=== PATIENT | male | born 1955 | race Caucasian/White ===

== ENCOUNTER 2019-04-07 18:59 | Inpatient (IN) | payer BC ==
[2019-04-07] VITALS (13 sets, daily range): BP systolic 112–179; BP diastolic 53–107
--- NOTE | ~2019-04-07 | HEMODYNAMI ---
PATIENT:BRIT LOPEZ MEDICAL RECORD: [id number] : 55 LOCATION:[facility] ADMISSION DATE: 04/07/19 Generatedon:04/07/201921:29 Patient name: BRIT LOPEZ Patient #: [id number] SSN: D OB: 1955 Date of study: 04/07/2019 Page: Of Hemodynamic Procedure Report Patient Data Patient Demographics Procedure consent was obtained First Name: BRIT Gender: Male Last Name: JESSICA : 1955 Patient #: [id number] Age: 63 year(s) Race: Unknown Additional ID: [id number] Contact details Address: [address] [place] [address] State: [place] City: [place] Zip code: [address] Past Medical History Allergies: No known allergies Admission Admission Data Admission Date: 04/07/2019 Admission Time: 18:59 Height (in.): 72 BSA: 1.99 (m2) Height (cm.): 182.88 BMI: 23.06 (kg/m2) Weight (lbs.): 170 Weight (kg.): 77.11 Lab Results Lab Result Date: 04/07/2019 Lab Result Time: 0:00 Biochemistry Name Units Result Min Max BUN mg/dl 22 --(----)-* 7 18 Creatinine mg/dl 1 --(--*-)-- 0.6 1.3 CBC Name Units Result Min Max Hemoglobin g/dl 16.2 --(--*-)-- 13.5 17.5 Procedure Procedure Types Cath Procedure Diagnostic Procedure LHC LHC w/Coronaries Intra-Aortic Balloon Pump Sedation Charges Moderate Sedation up to 15 minutes PCI Procedure Coronary Stent Coronary Stent Initial Procedure Description Procedure Date Procedure Date: 04/07/2019 Procedure Start Time: 20:27 Procedure End Time: 21:08 Procedure Staff Name Function Oscar Nice MD Performing Physician Diane Huang RN Education And Development Manager Diane Huang RN Nurse Ambar Larson RT Scrwalter Tony RT Monitor Procedure Data Cath Procedure Fluoroscopy Diagnostic fluoroscopy Total fluoroscopy Time: 7.7 time: 7.7 min min Diagnostic fluoroscopy Total fluoroscopy dose: dose: 1081 mGy 1081 mGy Contrast Material Contrast Material Type Amount (ml) Isovue 300 154 Entry Location Entry Primary Successful Side Size Upsize Upsize Entry Closure Succes sful Closure Location (Fr) 1 (Fr) 2 (Fr) Remarks Device Remarks Femoral Right 6 Fr 7 Fr 8 Fr Sheath artery Short Short sutured in place Estimated blood loss: 10 ml Diagnostic catheters Device Type Used For End Catheter Placement MULTIPACK JL 4.0 5Fr Procedure catheter MULTIPACK 3DRC 5Fr Procedure catheter MULTIPACK Pigtail 5 Fr Procedure catheter Procedure Complications No complications Procedure Medications Medication Administration Route Dosage 0.9% NaCl I.V. 100 ml/hr Oxygen etCO2 Nasal cannula 2 l/min Lidocaine 2% added to field 20 Heparin Flush Bag added to field 2 bags (1000units/500ml NS) Versed I.V. 2 mg Fentanyl I.V. 50 mcg Benadryl I.V. 50 mg Heparin Bolus I.V. 3000 units Versed I.V. 2 mg Fentanyl I.V. 50 mcg Nitroglycerin IC/IA I.C. 100 mcg Heparin Drip I.V. drip 500 units/hr (58788nrpmn/250 D5W) Plavix P.O. 600 mg Hemodynamics Rest BSA: 1.99 (m2) O2 Consumption: Estimated: 252.52 (ml/min) O2 Consumption indexed : Estimated:126.89 (ml/min/m) Heart Rate: 97 (bpm) Pressure Samples Time Site Value (mmHg) Purpose Heart Use Rate(bpm) 20:48 LV 86/-2,13 Snapshot 97 20:50 AO 82/44(61) Pullback 91 20:50 LV 95/-5,18 Pullback 91 Gradients Valve Time Site 1 Site 2 Mean SEP/DFP Peak To Heart Use (mmHg) (sec/min) Peak Rate (mmHg) (bpm) Aortic 20:49 LV AO 92 Aortic 20:50 LV AO 9 22 13 91 95/-5,18 82/44(61) Calculations Valve P-P Mean Valve Index Valve Source Name Gradient Area Flow (cm2) Aortic 13 9 13 9 Snapshots Pre Cath Intra NCS Post Cath Vital Signs Time Heart Resp SPO2 etCO2 NIBP (mmHg) Rhythm Pain Sedation Rate (ipm) (%) (mmHg) Status Level (bpm) 20:19:00 80 10 98 33.5 105/71(85) NSR 0 (11) 10(A) , No pain 20:23:14 87 11 98 34.2 116/73(89) NSR 0 (11) 10(A) , No pain 20:27:30 77 15 97 32 124/81(101) NSR 0 (11) 10(A) , No pain 20:31:48 86 20 98 19.3 118/78(93) NSR 0 (11) 10(A) , No pain 20:36:06 84 19 98 14.1 109/72(83) NSR 0 (11) 9(A) , No pain 20:40:18 91 20 98 33.5 106/72(81) NSR 0 (11) 9(A) , No pain 20:44:32 86 25 97 25.3 107/65(79) NSR 0 (11) 9(A) , No pain 20:48:46 87 20 97 17.8 101/57(72) NSR 0 (11) 9(A) , No pain 20:52:58 91 20 97 25.3 106/68(86) NSR 0 (11) 9(A) , No pain 20:57:10 81 19 97 31.2 109/73(90) NSR 0 (11) 9(A) , No pain 21:01:22 82 20 98 30.5 106/77(91) NSR 0 (11) 9(A) , No pain 21:06:33 75 19 97 26.8 99/54(70) NSR 0 (11) 10(A) , No pain 21:18:03 76 16 98 28.3 109/76(88) NSR 0 (11) 10(A) , No pain Medications Time Medication Route Dose Verified Delivered Reason No alannah Effectiveness by by 20:27:37 Versed I.V. 2 mg Oscar Diane for sedation Tex Huang RN 20:27:53 Fentanyl I.V. 50 mcg Oscar Diane for sedation Tex Huang RN 20:30:21 0.9% NaCl I.V. 100 Oscar Diane used for ml/hr Nice MD Sal sales support engineer 20:30:27 Oxygen etCO2 2 l/min Oscar Diane used for Nasal Tex Huang procedure cannula RN 20:30:33 Lidocaine 2% added 20ml Oscar Oscar for local to vial Tex Nice MD anesthetic field 20:30:37 Heparin Flush added 2 bags Oscar Oscar used for Bag to Tex Nice MD procedure (1000units/500ml field NS) 20:31:00 Benadryl I.V. 50 mg Oscar Diane Per physician Be nadryl Tex anderson RN in ER pyxis, given upon arrival to 20:31:38 Heparin Bolus I.V. 3000 Oscar Diane for ve rified units Tex Huang anticoagulation with DrBriseida Nice 20:34:23 Versed I.V. 2 mg Oscar Diane for sedation Tex Huang RN 20:34:27 Fentanyl I.V. 50 mcg Oscar Diane for sedation Tex Huang RN 20:36:24 Nitroglycerin I.C. 100 mcg Oscar Oscar for IC/IA Tex Nice MD vasodilation 21:11:22 Heparin Drip I.V. 500 Oscar Diane for (92974iloed/250 drip units/hr Txe Huang anticoagulation D5W) RN 21:19:29 Plavix P.O. 600 mg Oscar Diane for Tex Huang antiplatelet RN therapy Procedure Log Time Note 20:10:37 Patient Height : 72 inches 20:10:59 Patient Weight : 170 lbs 20:11:44 Lab Result : Hemoglobin 16.2 g/dl 20:11:44 Lab Result : Creatinine 1 mg/dl 20:11:44 Lab Result : BUN 22 mg/dl 20:12:30 Diagnostic Cath status Emergency 20:12:33 Diane Huang RN sent for patient. Start room use. 20:12:43 Time tracking: Call back (After hours or weekends) 20:12:53 Plan of Care:Hemodynamics will remain stable., Cardiac rhythm will remain stable., Comfort level will be maintained., Respiratory function will remain adequate., Patient/ family verbilizes understanding of procedure., Procedure tolerated without complication., Recovers from procedure without complications.. 20:13:01 Patient received from ED to CCL 1 Alert and oriented. Tansferred to table in Supine position. 20:13:02 Warm blankets applied, and zoey hugger turned on for patient comfort. 20:13:03 Correct patient and procedure confirmed by team. 20:13:05 Signed procedure consent form obtained from patient. 20:13:06 ECG and BP/O2 sat monitors applied to patient. 20:13:16 H&P Date Dictated: 04/07/2019 Greater than 30 days; new H&P dictated by physician. Or brief H&P completed., Emergent; H&P N/A, Within 30 days and on chart., H&P Addendum completed by physician on day of procedure. (MUST COMPLETE FOR ALL OUTPATIENTS), ER History on chart., New H&P dictated by physician.. 20:13:18 Pre-procedure instructions explained to patient. 20:13:20 Family in waiting room. 20:13:23 Patient NPO since Midnight. 20:13:34 Patient allergic to No known allergies 20:17:47 Vital chart was started 20:25:39 Is the patient allergic to Iodine/contrast media? Unknown. 20:25:41 Was the patient premedicated? Yes 20:25:43 Is patient on blood thinner?No 20:25:45 Patient diabetic? Yes. 20:25:46 If diabetic: On Metformin? Yes 20:25:48 If on Metformin: Last Dose? 04/07/2019 20:25:52 Snore? Yes 20:25:53 Sleep apnea? Yes 20:25:59 Dentures? No ? 20:26:07 Patient pain scale 2/10 ?. 20:26:13 IV patent on arrival in right forearm with 0.9% NaCl at [facility]. 20:26:17 Lab results completed and on chart. 20:26:21 Right groin area was prepped with chlora-prep and draped in sterile fashion 20:26:23 Alarms reviewed by R. N. 20:26:23 Sharps counted by scrub and verified by R.N. 20:26:26 Physician arrived 20:26:27 --------ALL STOP TIME OUT------ 20:26:27 Final Timeout: patient, procedure, and site verified with staff and physician. All members of the team are in agreement. 20:26:29 Right groin site verified by team. 20:26:34 Maximum allowable Isovue 370 dose 300ml. Physician notified. (300ml for normal creatinines. For patients with creatinine of 1.7 or higher multiply weight(kg) x 5 divided by creatinine.) 20:26:39 Fire Safety Assessment: A--An alcohol-based skin anteseptic being used preoperatively., C--Open oxygen or nitrous oxide is being used., D--An ESU, laser, or fiber-optic light is being used. 20:26:46 Physical assessment completed. ASA score P 2 - A patient with mild systemic disease as per Oscar Nice MD. 20:26:51 Sedation plan: IV Moderate Sedation Medication:Versed, Fentanyl 20:26:55 Use device set Femoral Dx 20::57 Procedure started. 20::57 Full Disclosure recording started 20:27:00 Local anesthetic to right femoral artery with Lidocaine 2% by Oscar Nice MD.INITIAL ACCESS ONLY 20:27:11 A 6 Fr Short sheath was inserted into the Right Femoral artery 20:27:20 ACIST Syringe (22691) opened to sterile field. 20:27:21 Bag Decanter (2002S) opened to sterile field. 20:27:21 Medline Cath Pack ([id number]) opened to sterile field. 20:27:22 DIAGNOSTIC WIRE .035 260cm J wire (426037) opened to sterile field. 20:27:24 ACIST Hand Control (00458) opened to sterile field. 20:27:24 ACIST Manifold (01045) opened to sterile field. 20:27:25 DIAGNOSTIC Multipack 5Fr catheter set (IW4962) opened to sterile field. 20:27:26 Tegaderm 4 x 4 (1626W) opened to sterile field. 20:27:37 Versed 2 mg I.V. was administered by Diane Huang RN; for sedation; 20:27:43 SHEATH 6FR Folsom (HHM186) opened to sterile field. 20:27:53 Fentanyl 50 mcg I.V. was administered by Diane Huang RN; for sedation; 20:27:56 GUIDE 6FR XBLAD 3.5 catheter ([id number]) opened to sterile field. 20:29:26 Quick Combo opened to sterile field. 20:29:29 Quick combo pads placed on patients chest and back. 20:30:21 0.9% NaCl 100 ml/hr I.V. was administered by Diane Huang RN; used for procedure; 20:30:27 Oxygen 2 l/min etCO2 Nasal cannula was administered by Diane Huang RN; used for procedure; 20:30:33 Lidocaine 2% 20ml vial added to field was administered by Oscar Nice MD; for local anesthetic; 20:30:37 Heparin Flush Bag (1000units/500ml NS) 2 bags added to field was administered by Oscar Nice MD; used for procedure; 20:30:49 BMW 300cm Cardinal 2 J wire ([id number]) opened to sterile field. 20:30:50 INFLATOR Merit BasixCompak (MV3931) opened to sterile field. 20:30:51 TUBING High Pressure Extension Tubing (Tex) (DR1958X) opened to sterile field. 20:31:00 Benadryl 50 mg I.V. was administered by Diane Huang RN; Per physician; Benadryl pulled in ER pyxis, given upon arrival to 20:31:00 A MULTIPACK JL 4.0 5Fr catheter was advanced over the wire and used for Procedure. 20:31:02 LCA angiography performed. 20:31:04 Catheter removed. 20:31:20 A MULTIPACK 3DRC 5Fr catheter was advanced over the wire and used for Procedure. 20:31:28 RCA angiography performed. 20:31:30 Catheter removed. 20:31:38 Heparin Bolus 3000 units I.V. was administered by Diane Huang RN; for anticoagulation; verified with Dr. Nice 20:31:53 Proceeding to intervention. 20:32:07 6 Fr xblad3.5 guide catheter was inserted over the wire 20:32:11 bmw wire advanced. 20:32:13 Wire advanced across lesion. 20:34:23 Versed 2 mg I.V. was administered by Diane Huang RN; for sedation; :34:27 Fentanyl 50 mcg I.V. was administered by Diane Huang RN; for sedation; 20:34:48 Inflate balloon Inflation number: 1 A EMERGE OTW 2.5 x 20 balloon ([id number]) was prepped and advanced across the Prox LAD, then inflated to 12 MISA for 0:24 (min:sec). 20:35:34 Balloon removed over the wire. 20:36:24 Nitroglycerin IC/IA 100 mcg I.C. was administered by Oscar Nice MD; for vasodilation; 20:42:55 Place stent Inflation Number: 2 A INTEGRITY OTW 2.5 X 18 stent ([id number]) was prepped and advanced across the Prox LAD. The stent was deployed at 10 MISA for 0:13 (min:sec). 20:46:45 Wire removed. 20:46:57 A MULTIPACK Pigtail 5 Fr catheter was advanced over the wire and used for Procedure. 20:48:09 LV angiography performed. 20:49:55 LV gram done using HODGE 20:50:01 EF : 20 % 20:51:23 Abdominal Aortagram was performed. 20:52:31 Catheter removed. 20:56:26 40cc IABP inserted into the RFA . 20:56:34 SHEATH 7FR Folsom (TKW930) opened to sterile field. 20:56:48 Sheath upsized to a 7 Fr Short. 20:58:30 Patient hooked up to Datascope monitor. 20:58:39 Sheath 8fr. Folsom 10cm opened to sterile field. 20:58:52 Sheath upsized to a 8 Fr. 20:59:45 40cc IABP inserted into the RFA . 21:00:06 IABP 40cm balloon catheter ([id number]) opened to sterile field. 21:05:44 Sheath removed intact; hemostasis achieved with Sheath sutured in place to the Right Femoral artery. 21:05:47 Procedure ended.(Physican Out) 21:06:03 Fluoroscopy time 07.70 minutes. 21:06:10 Fluoroscopy dose: 1081 mGy 21:06:10 Flurop Dose total: 1081 21:06:20 Contrast amount:Isovue 300 154ml. 21:06:24 Sharps counted by scrub and verified by R.N. 21:06:31 Insertion/operative site no bleeding no hematoma. 21:06:40 Post-op/insertion site Right Femoral artery dressed using a 4 x 4 and Tegaderm. 21:06:45 Post right femoral artery:stable 21:06:48 Post Procedure Pulses reassessed and unchanged 21:06:55 Post-procedure physical assessment completed. ASA score P 2 - A patient with mild systemic disease as per Oscar Nice MD. 21:07:12 Post procedure rhythm: unchanged., sinus rhythm , w/ ST elevation 21:07:16 Estimated blood loss: 10 ml 21:07:18 Post procedure instruction explained to patient.Patient verbalizes understanding. 21:07:57 Procedure type changed to Cath procedure, Diagnostic procedure, LHC, [facility] w/Coronaries, Intra-Aortic Balloon Pump, Sedation Charges, Moderate Sedation up to 15 minutes, PCI procedure, Coronary Stent, Coronary Stent Initial 21:08:00 Procedure and supply charges have been captured, reviewed, submitted and are correct. 21:08:34 Procedure Complication : No complications 21:08:37 Vital chart was stopped 21:08:39 See physician's report for complete and final results. 21:08:48 Report given to CVICU. 21:08:54 Patient transfered to CVICU with Bed. :08:57 Procedure ended. 21:08:57 Full Disclosure recording stopped 21:09:01 End room use (Document Last) 21:11:22 Heparin Drip (25776gacxy/250 D5W) 500 units/hr I.V. drip was administered by Diane Huang RN; for anticoagulation; 21:19:07 Tegaderm 4 x 4 (1626W) opened to sterile field. 21:19:08 Tegaderm 4 x 4 (1626W) opened to sterile field. 21:19:09 Tegaderm 4 x 4 (1626W) opened to sterile field. 21:19:29 Plavix 600 mg P.O. was administered by Diane Huang RN; for antiplatelet therapy; Intervention Summary Intervention Notes Time ActionType Lesion and Equipment Action# Pressure Duration Attributes Used 20:34:48 Inflate Prox LAD EMERGE OTW 1 12 00:24 balloon 2.5 x 20 balloon ([id number]) 20:42:55 Place stent Prox LAD INTEGRITY 2 10 00:13 OTW 2.5 X 18 stent ([id number]) Device Usage Item Name Manufacture Quantity Catalog Number [facility] Minimal Lot# / Charge Number Stock Stock Serial# Code ACIST Syringe Acist 1 36882 080472 931314 692816 20 (36799) [employer] Bag Decanter Microtek 1 447699 30913 348407 5 () [employer] Inc. Medline Cath Medline 1 [id number] 824456 09330 706259 5 Pack ([id number]) DIAGNOSTIC WIRE St Abe 1 328379 795366 651928 744607 30 .035 260cm J wire (103818) ACIST Hand Acist 1 74245 783787 727541 055895 5 Control (55518) Medical Systems Inc ACIST Manifold Acist 1 03714 655797 689499 880652 5 (86105) Medical Systems Inc DIAGNOSTIC Cardinal 1 LL1096 768275 85805 148381 30 Multipack 5Fr Health catheter set (XG8525) Tegaderm 4 x 4 3M 4 1626W 210778 668227 182012 5 (1626W) SHEATH 6FR Terumo 1 KRS106 150645 627685 888650 40 Folsom (EFC312) GUIDE 6FR XBLAD Cardinal 1 [id number] 149057 895128 304306 10 3.5 catheter Health (97213214) Youbei Game 1 03681-538748 742054 244353 858250 5 BMW 300cm Monroe 1 [id number] 524272 534128 767224 5 Cardinal 2 J Vascular wire (6728001Y) INFLATOR Merit Merit 1 UT6346 302651 564704 473608 15 BasixCompak Medical (MV9039) TUBING High Merit 1 [id number] 920193 62623 542026 10 Pressure Medical Extension Tubing (Nice) (SL6738M) MULTIPACK JL Cardinal 1 931758 5 4.0 5Fr Health catheter MULTIPACK 3DRC Cardinal 1 188918 5 5Fr catheter Health EMERGE OTW 2.5 [place] 1 [id number] 903297 109372 238346 5 62504170 x 20 balloon Scientific ([id number]) INTEGRITY OTW Medtronic 1 [id number] 292119 137877 181659 5 [id number] 2.5 X 18 stent ([id number]) MULTIPACK Cardinal 1 787943 5 Pigtail 5 Fr Health catheter SHEATH 7FR Terumo 1 IMX151 538694 310941 657039 5 Folsom (TMT898) Sheath 8fr. Terumo 1 VNO001 298972 541531 7 5 Folsom 10cm IABP 40cm [facility] 1 [id number] 760024 830509 786956 1 balloon [employer] catheter (619236) ([id number]) Signature Audit [place] Stage Time Signature Unsigned Intra-Procedure 04/07/2019 Alicja Tony 9:29:25 PM RT(R) Signatures Monitor : lAicja Tony Signature : RT Date : Time : [place] [id number] [place] [address]
[2019-04-07] MEDS ORDERED: LANTUS INSULIN10 ML SC (19:05)
[2019-04-07] MEDS ORDERED: LOVASTATIN40 MG PO (19:06)
[2019-04-07] MEDS ORDERED: CELEXA20 MG PO (19:06)
[2019-04-07] MEDS ORDERED: COZAAR100 MG PO (19:06)
[2019-04-07] MEDS ORDERED: GLUCOPHAGE1000 MG PO (19:06)
[2019-04-07] MEDS ORDERED: NOVOLOG100 UNIT/1 SC (19:06)
[2019-04-07] MEDS ORDERED: LISINOPRIL20 MG PO (19:07)
--- NOTE | 2019-04-07 19:28 | NUR ---
SETTLEMENT PROCESSOR CALLED PER DR SAVAGE'S REQUEST.
[2019-04-07 19:30] LABS: BASOPHILS 0.3 % (0-2); EOSINOPHILS 0.8 % (0-7); HEMATOCRIT 46.3 % (42.0-54.0); HEMOGLOBIN 16.2 g/dL (13.5-17.5); IMMATURE GRANULOCYTES 0.5 % (0-5); LYMPHOCYTES 9.4 % (15-50); MCH 31.2 pg (26.0-34.0); MEAN PLATELET VOLUME 10.4 fL (7.4-10.4); MONOCYTES 5.2 % (2-11); NEUTROPHILS 83.8 % (40-80); PLATELET COUNT 295 10x3/uL (130-400); RDW 12.7 % (11.5-14.5); WBC 14.5 10x3/uL (4.8-10.8)
--- NOTE | 2019-04-07 19:33 | NUR ---
FREIGHT TRAFFIC CONSULTANT CONSENTS SIGNED AND WITNESSED.
--- NOTE | 2019-04-07 19:35 | NUR ---
RN ADMINISTERED 1 NTG PER CP PROTOCOL.
[2019-04-07 19:40] LABS: APTT 22.3 SECONDS (22.8-39.4); INR 0.98 (0.85-1.17); PROTIME 12.5 SECONDS (11.6-15.0)
--- NOTE | 2019-04-07 19:40 | NUR ---
PT REPORTS DECREASE IN PAIN FROM 2/10 TO 1/10 AFTER NTG. PT BP FROM 179/107 TO 131/74 FOLLOWING NTG.
[2019-04-07 19:46] LABS: ALBUMIN 3.9 g/dL (3.4-5.0); ALKALINE PHOSPHATASE 129 U/L (46-116); ALT (SGPT) 43 U/L (10-68); BILIRUBIN - TOTAL 0.31 mg/dL (0.2-1.3); CALC OSMOLALITY 283 mosm/kg (275-300); CALCIUM 8.6 mg/dL (8.5-10.1); CARBON DIOXIDE 27.4 mmol/L (21.0-32.0); CHLORIDE - SERUM 100 mmol/L (98-107); GLUCOSE 266 mg/dL (74-106); POTASSIUM - SERUM 4.1 mmol/L (3.5-5.1); PROTEIN - SERUM 7.3 g/dL (6.4-8.2); SODIUM 136 mmol/L (136-145); UREA NITROGEN 22 mg/dL (7-18); eGFR NON AFRICAN AMERICAN 80 mL/min (90-120)
[2019-04-07 20:02] LABS: CKMB 15.9 U/L (0.0-3.6); CREATINE KINASE 411 UL (21-232)
[2019-04-07 20:05] LABS: TROPONIN-I 3.987 ng/mL (0.000-0.060)
--- NOTE | 2019-04-07 20:05 | NUR ---
DR QUINTANILLA AT PT BEDSIDE.
--- NOTE | 2019-04-07 20:06 | NUR ---
PT C/O CHEST DISCOMFORT. RN ADMINISTERED SECOND NTG PER DR QUINTANILLA.
--- NOTE | 2019-04-07 20:08 | NUR ---
FURNITURE CLEANER TEAM AT PT BEDSIDE.
--- NOTE | 2019-04-07 22:19 | NUR ---
PT RECIECVED FROM LICENSED GUIDE VIA BED. MONITOR EQUIP ESTABLISHED. VSS, AFEBRILE (97.8) DENIES PAIN. SR PER CM. 96% 4L NC. R AC PIV WITH HEPARIN INFUSING AT 5 ML/HR (500 UNITS/HR) AND NS AT 100 ML/HR. IABP TO R GROIN, LEG STRAIGHT WITH PERIPHERAL PULSES PALPABLE. 1:[address] ORDAZ ORDER. PT EDUCATED ON IMPORTANCE OF KEEPING HIS RIGHT LEG STRAIGHT AT ALL TIMES. CONTINUING TO MONITOR CLOSELY.
[2019-04-08] VITALS (81 sets, daily range): BP systolic 93–149; BP diastolic 44–83; BMI 24.0; BMI 23.3
--- NOTE | 2019-04-08 06:25 | NUR ---
DR QUINTANILLA AT BEDSIDE. UPDATED ON PT CONDITION. NEW ORDERS RECEIVED. HEPARIN TO INFUSE AT 700 UNITS/HR, RECHECK TROPI AT 09:00, CHECK PTT ROUTINELY. OK FOR DIET.
[2019-04-08] MEDS ORDERED: LANTUS SOL100 UNIT/1 SC (07:10)
--- NOTE | 2019-04-08 07:30 | NUR ---
SHIFT REPORT RECEIVED. AA&O. ON IABP AUTO, 1:1, ECG TRIGGER. IABP TO R-GROIN. DRESSING CDI. RIOS IN PLACE WITH CLEAR YELLOW URINE. ON 4L O2 VIA NC. HAS R-AC PIV WITH HEPARIN AT 700UNITS/HR AND NS AT 100ML/HR. REPORTS 4/10 CHEST PAIN, PRESSURE IN NATURE. RADIAL PULSES EQUAL BILATERAL. L-POSTERIOR TIBIAL +2. RIGHT POSTERIOR TIBIAL +3. SHIFT ASSESSMENT COMPLETED. SAFETY MEASURES IN PLACE. WILL CONTINUE TO MONITOR.
--- NOTE | 2019-04-08 08:16 | NUR ---
NITRO TAB GIVEN FOR CHEST PAIN PER ORDERS. FAMILY AT BEDSIDE.
--- NOTE | 2019-04-08 09:26 | NUR ---
DR. QUINTANILLA NOTIFIED OF PATIENT HAVING CHEST PAIN. ORDERED MORPHINE 2MG IV Q4HR PRN.
--- NOTE | 2019-04-08 09:35 | NUR ---
NS INFUSING AT 20ML/HR (KVO) PER DR. QUINTANILLA.
--- NOTE | 2019-04-08 10:04 | NUR ---
PT STATES THAT PAIN IS MUCH BETTER. NOT COMPLETELY GONE BUT IT IS TOLERABLE. WILL CONTINUE TO MONITOR AND TREAT PER ORDERS.
--- NOTE | 2019-04-08 10:49 | NUR ---
DR. QUINTANILLA NOTIFIED OF INCREASE IN TROPONIN LEVELS, PT REPORTING INDIGESTION. HAS EPISODDE OF PROJECTILE VOMITING. ZOFRAN 4MG IV GIVEN FOR NAUSEA. COMPLETE LINEN CHANGE PROVIDED. PARTIAL BATH GIVEN. RIOS CARE PROVIDED AT THIS TIME. PT RESTING COMFORTABLY ON HIS BACK. WILL CONTINUE TO MONITOR.
--- NOTE | 2019-04-08 10:49 | NUR ---
DR. QUINTANILLA NOTIFIED OF INCREASE IN TROPONIN LEVELS, PT HAVING INDEGESTION AND PROJECTILE VOMITING. ZOFRAN 4MG IV GIVEN FOR NAUSEA. DR. QUINTANILLA SAID HE EXPECTED TROPONIN LEVELS TO CONTINUE TO BE HIGH DUE TO ND. COMPLETE LINEN CHANGE PROVIDED. PARTIAL BATH GIVEN. RIOS CARE PROVIDED PER PROTOCOL. PULLED UP IN BED FOR COMFORT. WILL CONTINUE TO MONITOR.
--- NOTE | 2019-04-08 11:35 | NUR ---
DR. QUINTANILLA AT BEDSIDE. ORDERED PEPCID 20MG IV Q12HR.
--- NOTE | 2019-04-08 11:35 | NUR ---
DR. QUINTANILLA AT BEDSIDE. ORDERED PROTONIX 40MG IV Q 12HR.
--- NOTE | 2019-04-08 13:39 | NUR ---
RESTING COMFORTABLY. DENIES CHEST PAIN AT THIS TIME. HESITANT TO EAT DUE TO PREVIOUS NAUSEA AND VOMITING. ICE WATER PROVIDED. WILL CONTINUE TO MONITOR.
--- NOTE | 2019-04-08 16:24 | NUR ---
FAMILY AT BEDSIDE. PT REPORTING NAUSEA. ZOFRAN 4MG IV GIVEN FOR NAUSEA PER ORDERS.
--- NOTE | 2019-04-08 18:35 | NUR ---
RESTING COMFORTABLY. VSS. NO FURTHER NEEDS AT THIS TIME. WILL CONTINUE TO MONITOR.
--- NOTE | 2019-04-08 19:10 | NUR ---
REPORT RECIEVED, CARE ASSUMED.
--- NOTE | 2019-04-08 21:35 | NUR ---
FAMILY AT BEDSIDE. PT DENIES PAIN OR DISCOMFORT
[2019-04-09] VITALS (23 sets, daily range): BP systolic 101–129; BP diastolic 48–81
--- NOTE | 2019-04-09 | NUR ---
GIVEN ICE WATER. DENIES OTHER NEEDS OR PAIN AT THIS TIME
--- NOTE | 2019-04-09 04:00 | NUR ---
PT AWAKENS EASILY. DENIES PAIN.
--- NOTE | 2019-04-09 07:15 | NUR ---
REPORT RECEIVED. SHIFT ASSESSMENT COMPLETE. PT DENIES PAIN. DENIES NEEDS. BALLOON PUMP ENTRY RIGHT GROIN. PALPABLE PEDAL PULSES. HEPARIN GTT AT 7ML/HR.
--- NOTE | 2019-04-09 07:20 | NUR ---
DR QUINTANILLA BY TO SEE PATIENT. PT AWAKE AND A&O. DISCUSSED COMING AT LUNCH AND CHANGING SETTING ON BALLOON PUMP TO 1:2 AND LIKELY REMOVE TOMORROW. NOW OUT IN WAITING SPEAKING WITH FAMILY.
[2019-04-09 07:37] LABS: BASOPHILS 0.2 % (0-2); EOSINOPHILS 0.5 % (0-7); HEMATOCRIT 42.5 % (42.0-54.0); HEMOGLOBIN 14.4 g/dL (13.5-17.5); IMMATURE GRANULOCYTES 0.3 % (0-5); LYMPHOCYTES 11.1 % (15-50); MCH 31.2 pg (26.0-34.0); MCHC 33.9 g/dL (31.0-37.0); MEAN PLATELET VOLUME 10.9 fL (7.4-10.4); MONOCYTES 14.1 % (2-11); NEUTROPHILS 73.8 % (40-80); PLATELET COUNT 236 10x3/uL (130-400); RBC 4.61 10x6/uL (4.20-6.10); RDW 13.3 % (11.5-14.5)
[2019-04-09 07:49] LABS: MCV 92.2 fL (80.0-100.0)
[2019-04-09 08:05] LABS: CALC OSMOLALITY 276 mosm/kg (275-300); CALCIUM 8.2 mg/dL (8.5-10.1); CARBON DIOXIDE 26.7 mmol/L (21.0-32.0); CHLORIDE - SERUM 101 mmol/L (98-107); CREATININE - SERUM 0.9 mg/dL (0.6-1.3); POTASSIUM - SERUM 4.5 mmol/L (3.5-5.1); SODIUM 135 mmol/L (136-145); UREA NITROGEN 18 mg/dL (7-18); eGFR NON AFRICAN AMERICAN > 90 mL/min (90-120)
[2019-04-09 08:06] LABS: GLUCOSE 192 mg/dL (74-106)
--- NOTE | 2019-04-09 09:10 | NUR ---
AT BEDSIDE AT THIS TIME. WILL BE GOING HOME NOW AND RETURNING LATER. PT NO DISTRESS. CALL LIGHT IN REACH.
--- NOTE | 2019-04-09 10:02 | NUR ---
SISTER AT BEDSIDE AT THIS TIME. PT AWAKE.
--- NOTE | 2019-04-09 11:45 | NUR ---
LUNCH TRAY PROVIDED. PT DENIES ANY ADDITIONAL NEEDS. CALL LIGHT IN REACH.
--- NOTE | 2019-04-09 13:45 | NUR ---
BY TO CHECK IN ON PATIENT. LET KNOW BALLOON PUMP SETTINGS NOT YET CHANGED, WAITING ON DR QUINTANILLA TO COME BY. WILL CALL HER WHEN SETTINGS CHANGED.
--- NOTE | 2019-04-09 15:38 | NUR ---
DR QUINTANILLA BY. BALLOON PUMP SETTING CHANGED FROM 1:1 TO 1:2.
--- NOTE | 2019-04-09 15:41 | NUR ---
CALLED TOYA AND LET KNOW HAVE CHANGED BALLOON PUMP SETTING.
--- NOTE | 2019-04-09 16:45 | NUR ---
INSULIN GIVEN PER SLIDING SCALE. DINNER TRAY PROVIDED. AT BEDSIDE ASSISTING PATIENT TO EAT.
--- NOTE | 2019-04-09 18:45 | NUR ---
PT GIVEN HIBACLEANSE BATH. RIOS CARE PER PROTOCOL. ALL NEW LINENS.
--- NOTE | 2019-04-09 19:01 | NUR ---
REPORT RECEIVED, SHIFT ASSESSMENT COMPLETED PER FLOW SHEET. AAOX4. PPP. RT AC PIV PATENT, NO SIGNS OF INFECTION OR INFILTRATION. RT GROIN IABP INSERTION SITE, DRESSING C/D/I. SEE FLOW SHEET FOR COMPLETE ASSESSMENT. DENIES NEEDS. CALL LIGHT WITHIN REACH. WILL CONTINUE TO MONITOR.
--- NOTE | 2019-04-09 20:08 | NUR ---
AT BEDSIDE, QUESTIONS ANSWERED. PATIENT DENIES NEEDS. CALL LIGHT WITHIN REACH.
--- NOTE | 2019-04-09 21:13 | NUR ---
FSBS 171, 2 UNITS HUMALOG GIVEN PER SLIDING SCALE. PATIENT DENIES NEEDS AT THIS TIME. CALL LIGHT WITHIN REACH.
--- NOTE | 2019-04-09 23:01 | NUR ---
REASSESSMENT COMPLETED PER FLOW SHEET, SEE FOR DETAILS. NO ACUTE CHANGES NOTED. PPP. DENIES NEEDS. CALL LIGHT WITHIN REACH. WILL CONTINUE TO MONITOR.
[2019-04-10] VITALS (24 sets, daily range): BP systolic 98–121; BP diastolic 53–91
--- NOTE | 2019-04-10 01:00 | NUR ---
RESTING, NO ACUTE DISTRESS NOTED, BLANKET PROVIDED PER PATIENT'S REQUEST, DENIES OTHER NEEDS. CALL LIGHT WITHIN REACH. WILL CONTINUE TO MONITOR.
--- NOTE | 2019-04-10 03:04 | NUR ---
REASSESSMENT COMPLETED PER FLOW SHEET, SEE FOR DETAILS. NO ACUTE CHANGES NOTED. PPP. DENIES NEEDS. CALL LIGHT WITHIN REACH. WILL CONTINUE TO MONITOR.
--- NOTE | 2019-04-10 05:00 | NUR ---
AWAKE WATCHING TV, DENIES NEEDS. NO ACUTE CHANGES NOTED. WILL CONTINUE TO MONITOR. CALL LIGHT WITHIN REACH.
[2019-04-10 05:46] LABS: ALBUMIN 2.9 g/dL (3.4-5.0); ALKALINE PHOSPHATASE 72 U/L (46-116); ALT (SGPT) 93 U/L (10-68); BILIRUBIN - TOTAL 0.75 mg/dL (0.2-1.3); CALC OSMOLALITY 267 mosm/kg (275-300); CALCIUM 8.2 mg/dL (8.5-10.1); CARBON DIOXIDE 25.7 mmol/L (21.0-32.0); CHLORIDE - SERUM 98 mmol/L (98-107); CREATININE - SERUM 0.8 mg/dL (0.6-1.3); GLUCOSE 186 mg/dL (74-106); POTASSIUM - SERUM 3.9 mmol/L (3.5-5.1); PROTEIN - SERUM 6.1 g/dL (6.4-8.2); SODIUM 130 mmol/L (136-145); UREA NITROGEN 17 mg/dL (7-18); eGFR NON AFRICAN AMERICAN > 90 mL/min (90-120)
[2019-04-10 05:47] LABS: BASOPHILS 0.3 % (0-2); EOSINOPHILS 1.1 % (0-7); HEMATOCRIT 38.5 % (42.0-54.0); HEMOGLOBIN 13.2 g/dL (13.5-17.5); IMMATURE GRANULOCYTES 0.3 % (0-5); LYMPHOCYTES 11.6 % (15-50); MCH 30.8 pg (26.0-34.0); MCHC 34.3 g/dL (31.0-37.0); MEAN PLATELET VOLUME 10.6 fL (7.4-10.4); MONOCYTES 14.3 % (2-11); NEUTROPHILS 72.4 % (40-80); PLATELET COUNT 210 10x3/uL (130-400); RBC 4.28 10x6/uL (4.20-6.10); RDW 13.1 % (11.5-14.5); WBC 11.2 10x3/uL (4.8-10.8)
--- NOTE | 2019-04-10 07:20 | NUR ---
REPORT RECEIVED. SHIFT ASSESSMENT COMPLETE. PT AWAKE. SAYS SLEPT BETTER. VOICES NO COMPLAINTS. LOWER EXT PULSES PALPABLE.
--- NOTE | 2019-04-10 08:13 | NUR ---
SISTER AT BEDSIDE. PT RESTING QUIETLY
--- NOTE | 2019-04-10 08:38 | NUR ---
DR QUINTANILLA BY TO CHECK ON PT. CHANGE TO 1:3. PLANS TO PULL BALLOON PUMP LATER THIS AFTERNOON. SPOKE WITH FAMILY.
--- NOTE | 2019-04-10 09:14 | NUR ---
Nutrition Follow Up AHA Diabetic diet with 25,50,50% intake of meals yesterday Weight 167.5lb Pt has some challenges eating as he cannot sit up at this time Pt is not tolerating some foods well because of this Assisted pt with completing menu and ordered foods per toleration. Added Glucerna to trays RD following
--- NOTE | 2019-04-10 12:44 | NUR ---
11:40 DR QUINTANILLA AT BEDSIDE. RIGHT GROIN SHEATH/BALLOON PUMP REMOVED. VERY MINIMAL BLEEDING. PRESSURE WAS HELD UNTIL 12:20. PULSES REMAIN PALPABLE. NO HEMATOMA NOTED AT INSERTION SITE. SURROUNDING TISSUE SOFT. GAUZE AND TEGADERM DRESSING APPLIED. PT INSTRUCTED BY DR QUINTANILLA BEFORE HE LEFT TO REMAIN FLAT AN ADDITIONAL 4 HOURS. POSSIBLE DC HOME TOMORROW.
--- NOTE | 2019-04-10 14:38 | NUR ---
PT RESTING WATCHING TELEVISION. RIGHT GROIN PALPATED, NO HEMATOMA NOTED. PALPABLE LOWER EXT PULSES.
--- NOTE | 2019-04-10 15:42 | NUR ---
RIGHT GROIN SITE SHOWS SMALL DOT OF BLEEDING. SITE REMAINS SOFT. DRESSING MARKED FOR ANY ADDITIONAL CHANGE.
--- NOTE | 2019-04-10 15:53 | NUR ---
DR QUINTANILLA BY. CHECKED RIGHT GROIN. PLANS TO STILL LOOK AT DC TOMORROW. WENT TO WAITING TO SEE IF WAS THERE AFTER I HAD DISCUSSED WITH HIM HER CONCERN FOR SURGERY NEED. SHE WAS NOT IN WAITING AREA. NEW ORDER RECEIVED FOR [facility] IN AM.
--- NOTE | 2019-04-10 17:22 | NUR ---
RIOS CATHETER REMOVED. TIP INTACT. NO DIFFICULTY. NO BLEEDING. RIGHT GROIN SITE REMAINS SOFT. DRESSING C,D,I. PT ASSISTED UP TO TOILET. MINIMAL ASSIST. PT TOLERATED. VOICES NO COMPLAINTS. NOW SITTING UP IN CHAIR.
--- NOTE | 2019-04-10 19:04 | NUR ---
REPORT RECEIVED, SHIFT ASSESSMENT COMPLETED PER FLOW SHEET. AAOX4. WATCHING TV. PPP. RT GROIN DRESSING C/D/I. RT AC PIV PATENT, DRESSING C/D/I, NO SIGNS OF INFECTION OR INFILTRATION. DENIES PAIN OR NEEDS. SEE FLOW SHEET FOR COMPLETE ASSESSMENT. WILL CONTINUE TO MONITOR. CALL LIGHT WITHIN REACH.
--- NOTE | 2019-04-10 20:08 | NUR ---
AT BEDSIDE FOR VISITING HOURS. DENIES NEEDS. WILL CONTINUE TO MONITOR.
--- NOTE | 2019-04-10 22:00 | NUR ---
RESTING, DENIES NEEDS, CALL LIGHT WITHIN REACH.
--- NOTE | 2019-04-10 23:01 | NUR ---
REASSESSMENT COMPLETED PER FLOW SHEET, SEE FOR DETAILS. RT GROIN SITE, SOFT TO PALPATION, DRESSING C/D/I. DENIES PAIN OR NEEDS. CALL LIGHT WITHIN REACH.
[2019-04-11] VITALS (10 sets, daily range): BP systolic 97–115; BP diastolic 59–76
--- NOTE | 2019-04-11 01:04 | NUR ---
CALL LIGHT ANSWERED, ASSISSTED OOB TO USE URINAL, STEADY ON HIS FEET. 200 MLS YELLOW UOP EMPTIED. PATIENT ASSISSTED HIMSELF BACK IN BED WITHOUT DIFFICULTY. DENIES OTHER NEEDS. CALL LIGHT WITHIN REACH. WILL CONTINUE TO MONITOR.
--- NOTE | 2019-04-11 03:14 | NUR ---
REASSESSMENT COMPLETED PER FLOW SHEET, SEE FOR DETAILS. NO ACUTE CHANGES NOTED. DENIES NEEDS. CALL LIGHT WITHIN REACH. WILL CONTINUE TO MONITOR.
--- NOTE | 2019-04-11 05:00 | NUR ---
CALL LIGHT ANSWERED, 350 MLS EMPTIED FROM URINAL, DENIES OTHER NEEDS. CALL LIGHT WITHIN REACH.
[2019-04-11 06:36] LABS: BASOPHILS 0.2 % (0-2); EOSINOPHILS 1.1 % (0-7); HEMATOCRIT 39.4 % (42.0-54.0); HEMOGLOBIN 13.9 g/dL (13.5-17.5); IMMATURE GRANULOCYTES 0.5 % (0-5); LYMPHOCYTES 8.2 % (15-50); MCH 31.4 pg (26.0-34.0); MCHC 35.3 g/dL (31.0-37.0); MCV 88.9 fL (80.0-100.0); MEAN PLATELET VOLUME 10.5 fL (7.4-10.4); MONOCYTES 12.9 % (2-11); NEUTROPHILS 77.1 % (40-80); PLATELET COUNT 203 10x3/uL (130-400); RBC 4.43 10x6/uL (4.20-6.10); RDW 12.9 % (11.5-14.5); WBC 10.8 10x3/uL (4.8-10.8)
--- NOTE | 2019-04-11 07:40 | NUR ---
DR QUINTANILLA BY TO SEE PATIENT. WANTS PT TO GET UP AND WALK AND MAKE SURE NO DROP IN BLOOD PRESSURES OR OTHER CHANGES IN STATUS. IF EVERYTHING REMAINS OK, WILL DC AT LUNCHTIME.
--- NOTE | 2019-04-11 08:05 | NUR ---
PT UP TO TOILET. NO DISTRESS. AT BEDSIDE.
[2019-04-11] MEDS ORDERED: PLAVIX75 MG PO (11:52)
[2019-04-11] MEDS ORDERED: COREG 3.1253.125 MG PO (11:53)
--- NOTE | 2019-04-11 11:58 | NUR ---
DR QUINTANILLA BY TO SEE PATIENT. WILL SEND HOME. F/U ONE WEEK. PLAVIX AND COREG TO PHARMACY. F/U IN OFFICE SCHEDULE FOR 04/18/19 AT 3:30
--- NOTE | 2019-04-11 13:29 | NUR ---
DC INSTRUCTIONS GONE OVER WITH PT AND FAMILY, PIV DCD TIP INTACT NO SIGNS OF BLEEDING, DENY ANY QUESTIONS, ASSISTED TO CARE AND LEFT APPROX 1320
--- NOTE | 2019-04-11 18:11 | MORECARE ---
CASE MANAGEMENT DISCHARGE SUMMARY PATIENT: PACHECO LOPEZ UNIT: [id number] ADM DATE: 04/07/19 AGE: 64 : 55 SEX: M [facility] AUTHOR: HELENA,DOC PHYSICIAN: REFERRING PHYSICIAN: ROBIN QUINTANILLA M.D. DATE OF SERVICE: 04/11/19 Discharge Plan Patient Name: PACHECO LOPEZ Facility: [facility]:[place] : 1955 Planned Disposition: Home Anticipated Discharge Date: Discharge Date: 04/11/2019 Expected LOS: Initial Reviewer: [email or web address] Initial Review Date: 04/10/2019 Generated: 04/11/19 7:11 pm Comments DCP- Discharge Planning Updated by [email or web address]: Matilde Morse on 04/11/19 5:[address] LATE ENTRY 04/10/19 @ 1530 Patient Name: PACHECO LOPEZ Admission Status: ER Accout number: [id number] Admission Date: 04-07-2019 : 1955 Admission Diagnosis:ACUTE MYOCARDIAL INFARCTION, UNSPECIFIED Attending: ROBIN QUINTANILLA Current LOS: 4 Anticipated DC Date: Planned Disposition: Home Primary Insurance: [employer] OUT OF STATE Discharge Planning Comments: CM met with patient at bedside after explaining CM role and obtaining verbal consent. Patient lives at home with his Toya and plans to return there upon discharge. Patient feels this would be a safe discharge. CM discussed availability / needs of home health and medical equipment. Patient denies any discharge needs at this time. Patient states he will have his drive him home upon discharge. CM will continue to follow and assist as needed with discharge planning / needs. Tool Die Maker: Matilde Morse DCPIA - Discharge Planning Initial Assessment Updated by [email or web address]: Matilde Morse on 04/11/19 6:08 pm * Is the patient Alert and Oriented? Yes * How many steps to enter\exit or inside your home? 4-6 * PCP CHLOÉ HOLMAN * [facility] IN [place] * Preadmission Environment Home with Family * ADLs Independent * Equipment None * List name and contact numbers for known caregivers / representatives who currently or will assist patient after discharge: TOYA BURRELL - - [phone] * Verbal permission to speak to the caregivers and representatives has been obtained from the patient. Yes * Community resources currently utilized None * Additional services required to return to the preadmission environment? No * Can the patient safely return to the preadmission environment? Yes * Has this patient been hospitalized within the prior 30 days at any hospital? No Patient Name: PACHECO LOPEZ Page [id number] at 1811 All edits/amendments must be made on the electronic document DICTATION DATE: 04/11/191810 JANITORIAL MAINTENANCE WORKER: YAZ 04/11/191810 RPT#: [id number] DC DATE:04/11/19 STATUS: DIS IN [facility] [address] [place] [address] END OF REPORT
--- NOTE | 2019-04-11 18:36 | MORECARE ---
CASE MANAGEMENT DISCHARGE SUMMARY PATIENT: PACHECO LOPEZ UNIT: [id number] ADM DATE: 04/07/19 AGE: 64 : 55 SEX: M [facility] AUTHOR: HELENA,DOC PHYSICIAN: REFERRING PHYSICIAN: ROBIN QUINTANILLA M.D. DATE OF SERVICE: 04/11/19 Discharge Plan Patient Name: PACHECO LOPEZ Facility: [facility]:[place] : 1955 Planned Disposition: Home Anticipated Discharge Date: Discharge Date: 04/11/2019 Expected LOS: Initial Reviewer: [email or web address] Initial Review Date: 04/10/2019 Generated: 04/11/19 7:36 pm Comments DCP- Discharge Planning Updated by [email or web address]: Matilde Morse on 04/11/19 5:[address] LATE ENTRY 04/10/19 @ 1530 Patient Name: PACHECO LOPEZ Admission Status: ER Accout number: [id number] Admission Date: 04-07-2019 : 1955 Admission Diagnosis:ACUTE MYOCARDIAL INFARCTION, UNSPECIFIED Attending: ROBIN QUINTANILLA Current LOS: 4 Anticipated DC Date: Planned Disposition: Home Primary Insurance: [employer] OUT OF STATE Discharge Planning Comments: CM met with patient at bedside after explaining CM role and obtaining verbal consent. Patient lives at home with his Toya and plans to return there upon discharge. Patient feels this would be a safe discharge. CM discussed availability / needs of home health and medical equipment. Patient denies any discharge needs at this time. Patient states he will have his drive him home upon discharge. CM will continue to follow and assist as needed with discharge planning / needs. Dormitory Keeper: Matilde Morse DCPIA - Discharge Planning Initial Assessment Updated by [id number]: Matilde Morse on 04/11/19 6:08 pm * Is the patient Alert and Oriented? Yes * How many steps to enter\exit or inside your home? 4-6 * PCP CHLOÉ HOLMAN * [facility] [place] * Preadmission Environment Home with Family * ADLs Independent * Equipment None * List name and contact numbers for known caregivers / representatives who currently or will assist patient after discharge: TOYA BURRELL - - [phone] * Verbal permission to speak to the caregivers and representatives has been obtained from the patient. Yes * Community resources currently utilized None * Additional services required to return to the preadmission environment? No * Can the patient safely return to the preadmission environment? Yes * Has this patient been hospitalized within the prior 30 days at any hospital? No Last DP export: 04/11/19 5:11 p Patient Name: PACHECO LOPEZ Page [phone] at 1836 All edits/amendments must be made on the electronic document DICTATION DATE: 04/11/191834 SEWAGE PLANT ATTENDANT: YAZ 04/11/191834 RPT#: [id number] MT DATE:04/11/19 STATUS: DIS IN [facility] [address] [place] [address] END OF REPORT
== END 2019-04-11 13:20 | disposition home or self-care (01) | DRG 272 ==
LOC: D.ER 18:59 → EDBD 18:59 → D.CVICU 21:20
PROVIDERS: Family Medicine; ADMIT Internal Medicine Cardiovascular Disease; ATTEND Internal Medicine Cardiovascular Disease
PROC: B2151ZZ Fluoroscopy of Left Heart using Low Osmolar Contrast (ICD-10-PCS; 2019-04-07)
PROC: 4A023N7 Measurement of Cardiac Sampling and Pressure, Left Heart, Percutaneous Approach (ICD-10-PCS; 2019-04-07)
PROC: 02703DZ Dilation of Coronary Artery, One Artery with Intraluminal Device, Percutaneous Approach (ICD-10-PCS; principal; 2019-04-07 20:12)
PROC: 5A02210 Assistance with Cardiac Output using Balloon Pump, Continuous (ICD-10-PCS; 2019-04-07 20:12)
PROC: B2111ZZ Fluoroscopy of Multiple Coronary Arteries using Low Osmolar Contrast (ICD-10-PCS; 2019-04-07 20:12)
DX: I21.3 ST elevation (STEMI) myocardial infarction of unspecified site (principal); I21.4 Non-ST elevation (NSTEMI) myocardial infarction; I10 Essential (primary) hypertension; E11.9 Type 2 diabetes mellitus without complications; I45.10 Unspecified right bundle-branch block